=== PATIENT | female | born 1950 | race Caucasian/White ===

== ENCOUNTER 2020-01-17 08:45 | Observation (INO) | payer MEDICARE, OTHER ==
[~2020-01-17 08:45] MED LIST: Sodium Chloride 0.9% 1,000 ML ONE
[2020-01-17] MEDS ORDERED: Sodium Chloride 0.9% 1,000 ML IV ONE (08:50)
[2020-01-17] MEDS ORDERED: Lidocaine 1% 20 ML MDV ONE (09:02)
[2020-01-17 09:15] LABS: PTT,PARTIAL THROMBOPLSTIN TIME 20.3 SEC (23.2-32.3)
[2020-01-17] MEDS ORDERED: Lidocaine 2% Viscous Solution 15 ML Cup ONE (09:15)
[2020-01-17] MEDS ORDERED: Bacitracin/Neomycin/Polymyxin B Oint 0.9 GM U/D Packet ONE (09:21)
[2020-01-17 09:30] LABS: CHLORIDE,CL 105 mEq/L (98-106); SODIUM,NA 140 mEq/L (136-145)
[2020-01-17] MEDS ORDERED: Lidocaine 2% Viscous Solution 15 ML Cup TOP ONE (09:33)
[2020-01-17] MEDS ORDERED: Bacitracin/Neomycin/Polymyxin B Oint 0.9 GM U/D Packet TOP ONE (09:37)
--- NOTE | 2020-01-17 10:08 | EDM.PDOC ---
ED HPI GENERAL MEDICAL PROBLEM - General Chief Complaint: Trauma Stated Complaint: laceration Time Seen by Provider: 01/17/20 08:45 Source of Information: Reports: Patient, EMS History Limitations: Reports: No Limitations - History of Present Illness INITIAL COMMENTS - FREE TEXT/NARRATIVE: This patient is a 69 year old female that presents to the ER via EMS. Patient reports she was walking with glass vase, she tripped forward and landed on the vase and the glass cracked in several pieces. Patient reports having a laceration to the LLE. Patient reports that when she fell to the ground she passed and was laying on the ground. Patient reports she feels lightheaded and not feeling very well. She reports she feels very tired. EMS reports varma they arrived on scene the patient was laying back to ground and was awake and oriented. The patient BP was 66/52, HR 50s. The patient was diaphoretic. She denies hitting head, or any other injury except the laceration to the tib/fib. Trauma code called due to injury and hypotensive with possibility of shock. 2 large bore IVs started, CXR, tib/fix xray, digital director, oxygen. 94% RA. Patient placed in trendelenburg position. Wound quickly explored, no active bleeding, pressure dressing applied. Lab to bedside, type and screen also ordered. 2 NS boluses to gong after IV insertions. Onset: Today Onset Date: 01/17/20 Onset Time: 08:15 Location: Reports: Lower Extremity, Left Front/Back Body Image: 1 - laceration 2 - laceration Severity: Severe Improves with: Reports: None Worsens with: Reports: None Associated Symptoms: Reports: Diaphoresis, Malaise, Syncope, Weakness (generally ). Denies: Confusion, Chest Pain, Cough, cough w sputum, Fever/Chills, Headaches, Loss of Appetite, Nausea/Vomiting, Rash, Seizure, Shortness of Breath Left Lower Leg Pain Score (Numeric/FACES): 4 - Related Data Allergies Allergy/AdvReac Type Severity Reaction Status Date / Time No Known Allergies Allergy Verified 01/17/20 08:57 Home Meds: Home Meds Ascorbic Acid [Vitamin C] 1 tab PO DAILY 04/27/14 [History] Cholecalciferol (Vitamin D3) [Vitamin D] 4,000 unit PO DAILY 04/27/14 [History] Ibuprofen [Advil] 200 mg PO Q4HR 04/27/14 [History] Levothyroxine 112 mcg PO DAILY 04/27/14 [History] Multivitamin [Multi Vitamin Daily] 1 tab PO DAILY 04/27/14 [History] atenoloL [Tenormin] 25 mg PO BID 04/27/14 [History] Rosuvastatin Calcium 5 mg PO DAILY 01/17/20 [History] Review of Systems - Review of Systems Review Of Systems: See Below Constitutional: Reports: Diaphoresis, Weakness Eyes: Reports: No Symptoms Ears: Reports: No Symptoms Nose: Reports: No Symptoms Mouth/Throat: Reports: No Symptoms Respiratory: Reports: No Symptoms. Denies: Shortness of Breath Cardiovascular: Reports: Lightheadedness, Syncope. Denies: Chest Pain, Palpitations GI/Abdominal: Reports: No Symptoms. Denies: Abdominal Pain, Nausea, Vomiting Genitourinary: Reports: No Symptoms Musculoskeletal: Reports: Leg Pain (LLE at laceration). Denies: Neck Pain Skin: Reports: Wound (LLE laceration) Neurological: Reports: Dizziness, Syncope. Denies: Headache, Seizure Psychiatric: Reports: No Symptoms ED EXAM, GENERAL - Physical Exam Exam: See Below Exam Limited By: No Limitations General Appearance: Alert, Anxious, Obese, Other (very drowsy, but awake and oriented and easily aroused. ) Eye Exam: Bilateral Eye: EOMI, Normal Inspection, PERRL Ears: Normal External Exam, Normal Canal, Hearing Grossly Normal, Normal TMs Ear Exam: Bilateral Ear: Auricle Normal, Canal Normal, TM normal Nose: Normal Inspection, Normal Mucosa, No Blood Throat/Mouth: Normal Inspection, Normal Lips, Normal Teeth, Normal Gums, Normal Oropharynx, Normal Voice, No Airway Compromise Head: Atraumatic, Normocephalic. No: Facial Swelling, Facial Tenderness Neck: Normal Inspection, Supple, Non-Tender, Full Range of Motion, Other ( Cervical Cleared upon arrival to ER. No stepoffs no tenderness. ROM intact. ) Respiratory/Chest: No Respiratory Distress, Lungs Clear, Normal Breath Sounds, No Accessory Muscle Use, Chest Non-Tender Cardiovascular: No Edema, Bradycardia (50s). No: Normal Peripheral Pulses ( faint, but palpable. ) Peripheral Pulses: 1+: Radial (L), Radial (R), Femoral (L), Femoral (R), Popliteal (L), Popliteal (R), Posterior Tibial (L), Posterior Tibial (R), Dorsalis Pedis (L), Dorsalis Pedis (R) GI/Abdominal: Soft, Non-Tender, No Abnormal Bruit Back Exam: Normal Inspection, Full Range of Motion. No: CVA Tenderness (L), CVA Tenderness (R), Decreased Range of Motion, Muscle Spasm, Paraspinal Tenderness, Vertebral Tenderness Extremities: No Pedal Edema, Slow Capillary Refill (delated bilateral LE.) Neurological: Alert, Oriented, Other (drowsy, but arroused. ) Psychiatric: Anxious Skin Exam: Warm, Dry, No Rash, Wound/Incision (laceration x2 LLE), Other (Left foot distal to pressure dressing is dusky. Pressure dressing then removed, now pink and warm.) ED TRAUMA PROCEDURES - Laceration/Wound Repair Left Anterior Leg Lac/Wound Length In cm: 10 Appearance: Subcutaneous Distal NVT: Neuro & Vascular Intact, No Tendon Injury Anesthetic Type: Local Local Anesthesia - Lidocaine (Xylocaine): 1% Plain Local Anesthetic Volume: Other (8) Skin Prep: Chlorhexidine (Hibiciens) Saline Irrigation (cc's): 100 Exploration/Debridement/Repair: Wound Explored, In a Bloodless Field, Explored to Base, No Foreign Material Found, Wound Margins Revised Closed With: Zaida # of Sutures: 10 Tetanus Status Addressed: Yes Complications: No Progress/Comments: bacitracin, telfa dressing, kerlex, then tish applied. Left Anterior Distal Leg Appearance: Superficial, Clean Distal NVT: Neuro & Vascular Intact, No Tendon Injury Anesthetic Type: Topical Skin Prep: Chlorhexidine (Hibiciens) Exploration/Debridement/Repair: Wound Explored, In a Bloodless Field, Explored to Base, Wound Margins Revised Closed With: [place] # of Sutures: 3 Tetanus Status Addressed: Yes Complications: No Progress/Comments: bacitracin, telfa, kerlex, tish wrap applied Course - Vital Signs Last Recorded V/S: Last Vital Signs Temp 95.9 F L 01/17/20 08:47 Pulse 54 L 01/17/20 08:47 Resp 16 01/17/20 08:47 BP 66/52 L 01/17/20 08:47 Pulse Ox 94 L 01/17/20 08:47 - Orders/Labs/Meds Orders: Active Orders 24 hr Category Date Time Status Patient Status Manage Transfer [TRANSFER] Routine ADT 01/17/20 10:45 Active Chest 1V Frontal [CR] Routine Exams 01/17/20 Taken Tibia Fibula Lt [CR] Routine Exams 01/17/20 09:16 Taken RED BLOOD CELLS LP [BBK] Stat Lab 01/17/20 08:52 Results TYPE AND SCREEN [BBK] Stat Lab 01/17/20 08:52 Results Resuscitation Status Routine Resus Stat 01/17/20 10:47 Ordered Labs: Laboratory Tests 01/17/20 01/17/20 01/17/20 Range/Units 08:52 08:52 08:52 WBC 98.7 H* (5.0-10.0) 10^3/uL RBC 3.93 L (4.00-5.50) 10^6/uL Hgb 11.8 L (12.0-16.0) g/dL Hct 35.9 L (37.0-47.0) % MCV 91.3 (82.0-94.0) fL MCH 30.0 (27.0-32.0) pg MCHC 32.9 L (33.0-38.0) g/dL RDW Coeff of Mikie 13.3 (11.0-15.0) % Plt Count 212 (150-400) 10^3/uL Add Manual Diff Yes Neutrophils % (Manual) 16 L (35-85) % Lymphocytes % (Manual) 82 H (21-55) % Monocytes % (Manual) 1 L (2-12) % Eosinophils % (Manual) 1 (0-5) % Absolute Neutrophils 15.79 H (1.80-7.00) 10^3/uL Lymphocytes # (Manual) 80.93 H (1.00-4.80) 10^3/uL Monocytes # (Manual) 0.99 H (0.00-0.80) 10^3/uL Eosinophils # (Manual) 0.99 H (0.00-0.45) 10^3/uL Smudge Cells Moderate H (NOT SEEN) Platelet Estimate Adequate (ADEQUATE) PT 10.7 (9.7-12.3) SEC INR 1.06 (0.92-1.18) APTT 20.3 L (23.2-32.3) SEC Sodium 140 (136-145) mEq/L Potassium 3.8 (3.5-5.0) mEq/L Chloride 105 (98-106) mEq/L Carbon Dioxide 20 L (21-32) mmol/L BUN 14 (7-18) mg/dL Creatinine 1.3 H (0.6-1.0) mg/dL Est Cr Clr Drug Dosing 37.27 mL/min Estimated GFR (MDRD) 41 L (>=60) mL/min Glucose 193 H D (75-99) mg/dL Lactic Acid (0.4-2.0) mmol/L Calcium 8.1 L (8.4-10.1) mg/dL Total Bilirubin 0.6 (0.0-1.0) mg/dL AST 15 (15-37) U/L ALT 22 (12-78) U/L Alkaline Phosphatase 50 (46-116) U/L Troponin I < 0.017 (0.00-0.06) ng/mL Total Protein 5.2 L (6.4-8.2) g/dL Albumin 3.1 L (3.4-5.0) g/dL Amylase 47 (25-115) U/L Gel Antibody Screen Crossmatch 01/17/20 01/17/20 Range/Units 08:52 08:52 WBC (5.0-10.0) 10^3/uL RBC (4.00-5.50) 10^6/uL Hgb (12.0-16.0) g/dL Hct (37.0-47.0) % MCV (82.0-94.0) fL MCH (27.0-32.0) pg MCHC (33.0-38.0) g/dL RDW Coeff of Mikie (11.0-15.0) % Plt Count (150-400) 10^3/uL Add Manual Diff Neutrophils % (Manual) (35-85) % Lymphocytes % (Manual) (21-55) % Monocytes % (Manual) (2-12) % Eosinophils % (Manual) (0-5) % Absolute Neutrophils (1.80-7.00) 10^3/uL Lymphocytes # (Manual) (1.00-4.80) 10^3/uL Monocytes # (Manual) (0.00-0.80) 10^3/uL Eosinophils # (Manual) (0.00-0.45) 10^3/uL Smudge Cells (NOT SEEN) Platelet Estimate (ADEQUATE) PT (9.7-12.3) SEC INR (0.92-1.18) APTT (23.2-32.3) SEC Sodium (136-145) mEq/L Potassium (3.5-5.0) mEq/L Chloride (98-106) mEq/L Carbon Dioxide (21-32) mmol/L BUN (7-18) mg/dL Creatinine (0.6-1.0) mg/dL Est Cr Clr Drug Dosing mL/min Estimated GFR (MDRD) (>=60) mL/min Glucose (75-99) mg/dL Lactic Acid 4.5 H (0.4-2.0) mmol/L Calcium (8.4-10.1) mg/dL Total Bilirubin (0.0-1.0) mg/dL AST (15-37) U/L ALT (12-78) U/L Alkaline Phosphatase (46-116) U/L Troponin I (0.00-0.06) ng/mL Total Protein (6.4-8.2) g/dL Albumin (3.4-5.0) g/dL Amylase (25-115) U/L Gel Antibody Screen Negative Crossmatch See Detail Meds: Medications Discontinued Medications Generic Name Dose Route Start Last Admin Trade Name Glenn PRN Reason Stop Dose Admin Cefazolin Sodium 1 gm 01/17/20 10:20 Ancef IVPUSH 01/17/20 10:21 ONETIME ONE Sodium Chloride Confirm 01/17/20 08:38 01/17/20 08:50 Normal Saline Administered 01/17/20 08:39 999 mls/hr Dose Administration 1,000 mls @ as directed .ROUTE .STK-MED ONE Sodium Chloride 1,000 mls @ 999 mls/hr 01/17/20 08:50 01/17/20 09:37 Normal Saline IV 01/17/20 09:50 Not Given .BOLUS ONE Lidocaine HCl Confirm 01/17/20 09:02 01/17/20 09:35 Xylocaine 1% Administered 01/17/20 09:03 Not Given Dose 20 ml .ROUTE .STK-MED ONE Lidocaine HCl Confirm 01/17/20 09:15 01/17/20 09:35 Xylocaine 2% Viscous Administered 01/17/20 09:16 Not Given Dose 15 ml .ROUTE .STK-MED ONE Lidocaine HCl 15 ml 01/17/20 09:33 01/17/20 09:35 Xylocaine 2% Viscous TOP 01/17/20 09:34 15 ml ONETIME ONE Administration Lidocaine HCl 20 ml 01/17/20 09:37 01/17/20 09:40 Xylocaine-Mpf 1% INJECT 01/17/20 09:38 20 ml ONETIME ONE Administration Neomycin/Polymyxin/Bacitracin 1 each 01/17/20 09:37 01/17/20 09:56 Triple Antibiotic Oint TOP 01/17/20 09:38 1 each ONETIME ONE Administration Neomycin/Polymyxin/Bacitracin Confirm 01/17/20 09:21 01/17/20 09:54 Triple Antibiotic Oint Administered 01/17/20 09:22 Not Given Dose 1 each .ROUTE .STK-MED ONE - Radiology Interpretation Free Text/Narrative:: CXR; no acute abnormality Left tib/fib: Soft tissue defect medial left lower jackson with associated cortical irregularity of the medial cortex of the tibia. - Re-Assessments/Exams Free Text/Narrative Re-Assessment/Exam: 01/17/20 0900 Patient pressures are improving, see vital sheet. Patient reports she is starting to feel a little better. Patient HR remains in 50s. She is on beta alessandro. distal pulses remain palpable, but weak. 01/17/20 0930 Patient pressures improving, see vital sheet. Patient reports she is feeling even better than before. She is taken out of trendelenburg. Discussed with patient getting blood, explained risk vs benefits. Ordered 1 unit of PRBCs. She has agreed to get blood, understands all risks and benefits. Fluids nearly done. Pedal pulses bilateral now +2. 01/17/20 1000 Patient reports she is feeling very good, sitting up, talking with nurse. 01/17/20 10:25 Called [facility] to discuss patient xray with orthopedic. They will call me back. 01/17/20 10:33 Will admit this patient due to her blood loss for observation Departure - Departure Time of Disposition: 10:35 Disposition: Refer to Observation Clinical Impression: Hypovolemia due to hemorrhage, Hypotension due to blood loss - Discharge Information *PRESCRIPTION DRUG MONITORING PROGRAM REVIEWED*: Not Applicable *COPY OF PRESCRIPTION DRUG MONITORING REPORT IN PATIENT [place]: Not Applicable Forms: ED Department Discharge Sepsis Event Note - Evaluation Sepsis Screening Result: No Definite Risk - Focused Exam Vital Signs: Vital Signs Temp Pulse Resp BP Pulse Ox 01/17/20 08:47 95.9 F L 54 L 16 66/52 L 94 L Date Exam was Performed: 01/17/20 Time Exam was Performed: 10:56 - My Orders Last 24 Hours: My Active Orders 01/17/20 Chest 1V Frontal [CR] Routine 01/17/20 08:52 RED BLOOD CELLS LP [BBK] Stat TYPE AND SCREEN [BBK] Stat 01/17/20 09:16 Tibia Fibula Lt [CR] Routine 01/17/20 10:45 Patient Status Manage Transfer [TRANSFER] Routine 01/17/20 10:47 Resuscitation Status Routine - Assessment/Plan Last 24 Hours: My Active Orders 01/17/20 Chest 1V Frontal [CR] Routine 01/17/20 08:52 RED BLOOD CELLS LP [BBK] Stat TYPE AND SCREEN [BBK] Stat 01/17/20 09:16 Tibia Fibula Lt [CR] Routine 01/17/20 10:45 Patient Status Manage Transfer [TRANSFER] Routine 01/17/20 10:47 Resuscitation Status Routine Plan: PLEASE SEE RN NOTE FOR PFSH PLEASE USE ER H&P FOR ADMIT H&P
[2020-01-17] MEDS ORDERED: ceFAZolin 1 GM Vial IVPUSH ONE (10:20)
[2020-01-17] MEDS ORDERED: Acetaminophen/HYDROcodone 325-5 MG Tab PO PRN (11:44)
[2020-01-17] MEDS ORDERED: Ondansetron 4 MG/2 ML SDV IV PRN (11:44)
[2020-01-17] MEDS ORDERED: Sodium Chloride 0.9% 250 ML IV SCH (11:44)
[2020-01-17] MEDS ORDERED: Diphtheria,Pertussis(Acell),Tetanus Vaccine 0.5 ML Syringe IM ONE ×2 (12:29→15:30)
[2020-01-17] MEDS: Multivitamin Tab PO SCH (12:58)
[2020-01-17] MEDS: Ascorbic Acid 500 MG Tab PO SCH (12:58)
[2020-01-17] MEDS: Sodium Chloride 0.9% 1,000 ML IV SCH (13:00)
[2020-01-17] MEDS ORDERED: Cephalexin 500 MG Cap PO SCH (15:00)
[2020-01-17] MEDS: Cephalexin 500 MG Cap PO SCH (19:36)
[2020-01-17] MEDS: Acetaminophen 325 MG Tab PO PRN (19:36)
[2020-01-17] MEDS: Atenolol 25 MG Tab PO SCH (19:39)
[2020-01-18] MEDS: Cephalexin 500 MG Cap PO SCH ×3 (01:15→14:26)
[2020-01-18] MEDS: Sodium Chloride 0.9% 1,000 ML IV SCH (01:17)
[2020-01-18] MEDS: Acetaminophen 325 MG Tab PO PRN ×3 (02:57→14:26)
[2020-01-18] MEDS ORDERED: Levothyroxine 112 MCG Tab PO SCH (07:00)
[2020-01-18] MEDS ORDERED: Cholecalciferol (Vitamin D3) 25 MCG Tab PO SCH (08:00)
[2020-01-18] MEDS ORDERED: Simvastatin 20 MG Tab PO SCH (08:00)
[2020-01-18] MEDS: Multivitamin Tab PO SCH (08:02)
[2020-01-18] MEDS: Ascorbic Acid 500 MG Tab PO SCH (08:03)
[2020-01-18] MEDS: Atenolol 25 MG Tab PO SCH (08:03)
[2020-01-18 13:12] VITALS: BP 117/59; PULSE 80
--- NOTE | 2020-01-18 16:17 | DISCH ---
ADMISSION DIAGNOSES: 1. Fall with lower extremity trauma. 2. Hypotension due to blood loss. 3. Hemorrhagic wound secondary to fall. 4. History of hypertension. DISCHARGE DIAGNOSIS: 1. FALL WITH LOWER EXTREMITY TRAUMA. 2. HYPOTENSION DUE TO BLOOD LOSS. 3. HEMORRHAGIC WOUND SECONDARY TO FALL. 4. HISTORY OF HYPERTENSION. HISTORY: The patient is a 69-year-old female, lives at home alone. She tripped and fell, shattered a Crock-Pot that cut her left lower leg in the anterior tib and mid shaft region. She laid there for some time before help was able to be arrived. She had significant amount of blood loss from the wound apparently. It was quite deep and she was evaluated by Heriberto Nolasco in our emergency room. She originally presented with some hypotension and hypovolemia. She got aggressive IV fluid replacement in the ER and was admitted after the wound was repaired with superficial corrine. HOSPITAL COURSE: The patient did fine while here. She recovered her blood pressure nicely. She has never been tachycardic or hypotensive since admission. The wound drained a little bit of blood post repair, but for the most part, has been clean and dry. She had physical therapy today for toe touching because of the sensitivity of this wound and she is doing fine with ambulation with a walker for the next week. We will continue with outpatient physical therapy for wound cares and ongoing strengthening of the area. She was put on empiric antibiotics in the form of Keflex, those will be continued. She is having minimal pain getting along with Tylenol and Motrin as needed. Gave her strict instructions for ongoing foot maneuvers to help prevent DVT. She understands. When she was admitted, she had a hemoglobin of 11. She did get 1 unit of blood along with her IV fluid resuscitation and today her hemoglobin was 9. Overall, the patient has done quite well. She is going to follow up with Lea Pineda, her primary provider next week for potential for staple removal and reassessment to start weightbearing. COMPLICATIONS: During her stay were none. CONSULTATIONS: Physical Therapy. DISPOSITION: Discharged home with self-cares. JADEN/RAJEEV /[id number]
== END 2020-01-18 15:15 | disposition home or self-care (01) ==
LOC: CC.ED 08:45 → CC.MS 10:45
PROVIDERS: ADMIT Nurse Practitioner; ATTEND Family Medicine
DX: S81.812A Laceration without foreign body, left lower leg, initial encounter (principal); E86.1 Hypovolemia; I95.9 Hypotension, unspecified; Z23 Encounter for immunization; R58 Hemorrhage, not elsewhere classified; I10 Essential (primary) hypertension; Z79.899 Other long term (current) drug therapy; W01.110A Fall on same level from slipping, tripping and stumbling with subsequent striking against sharp glass, initial encounter
CPT/HCPCS: 12004; 36415; 36430; 71045; 73590-LT; 80053; 82150; 83605; 84484; 85025; 85610; 85730; 86850; 86900; 86901; 86920; 86922; 90471; 90715; 96361; 96374; 97116-GP; 99285-25; A9270-GY; G0378; J0690; J2001; J7030; P9016

== ENCOUNTER 2022-09-21 16:13 | Emergency (ER) | payer MEDICARE, OTHER ==
[2022-09-21 16:35] VITALS: BP 139/68; PULSE 68
[2022-09-21] MEDS: Ketorolac 60 MG/2 ML SDV IM ONE (16:37)
[2022-09-21] MEDS: Orphenadrine 60 MG/2 ML Inj IM ONE (16:37)
== END 2022-09-21 18:00 | disposition home or self-care (01) ==
LOC: CC.ED 16:13
DX: S86.911A Strain of unspecified muscle(s) and tendon(s) at lower leg level, right leg, initial encounter (principal); E03.9 Hypothyroidism, unspecified; F17.210 Nicotine dependence, cigarettes, uncomplicated; Z79.899 Other long term (current) drug therapy; W00.0XXA Fall on same level due to ice and snow, initial encounter
CPT/HCPCS: 96372; 99283; J1885; J2360